=== PATIENT | female | born 1945 | race Caucasian/White ===

== ENCOUNTER 2021-11-14 15:53 | Emergency (ER) | payer MEDICARE, BC | END 2021-11-14 17:15 | disposition home or self-care (01) | LOC: DL.ED 15:53 | DX: L71.9 Rosacea, unspecified (principal); Z88.0 Allergy status to penicillin; Z88.5 Allergy status to narcotic agent | CPT/HCPCS: 99282 ==

== ENCOUNTER 2022-03-02 04:48 | Emergency (ER) | payer MEDICARE, BC ==
[2022-03-02] MEDS ORDERED: Ketorolac 30 MG/ML SDV IM ONE (18:40)
== END 2022-03-02 18:44 | disposition home or self-care (01) ==
LOC: DL.ED 04:48
DX: M25.511 Pain in right shoulder (principal); M79.601 Pain in right arm; W19.XXXA Unspecified fall, initial encounter
CPT/HCPCS: 96372; 99283

== ENCOUNTER 2022-03-24 18:09 | Emergency (ER) | payer MEDICARE, BC ==
[2022-03-24] MEDS ORDERED: Sodium Chloride 0.9% 10 ML Syringe FLUSH PRN (18:32)
[2022-03-24 19:06] LABS: ANION GAP 11.7 mEq/L (7-13); CHLORIDE,CL 97 mmol/L (98-107); SODIUM,NA 132 mmol/L (136-145)
[2022-03-24 19:10] LABS: ESTIMATED GFR 72 mL/min (>=60); PTT,PARTIAL THROMBOPLSTIN TIME 24.5 SEC (22.0-34.0)
[2022-03-24 19:54] LABS: AMPHETAMINES,URINE NEGATIVE (NEGATIVE); BARBITURATES,URINE NEGATIVE (NEGATIVE); BENZODIAZEPINE,URINE NEGATIVE (NEGATIVE); MDMA (ECSTASY), URINE NEGATIVE (NEGATIVE); METHADONE,URINE NEGATIVE (NEGATIVE); METHAMPHETAMINES,URINE NEGATIVE (NEGATIVE); OPIATES,URINE NEGATIVE (NEGATIVE); OXYCODONE,URINE NEGATIVE (NEGATIVE); PHENCYCLIDINE,URINE NEGATIVE (NEGATIVE); TCA,URINE NEGATIVE (NEGATIVE)
== END 2022-03-24 20:35 | disposition home or self-care (01) ==
LOC: DL.ED 18:09
DX: R53.1 Weakness (principal); R47.01 Aphasia; I10 Essential (primary) hypertension; Z86.16 Personal history of COVID-19; Z88.0 Allergy status to penicillin; Z88.5 Allergy status to narcotic agent; Z79.82 Long term (current) use of aspirin
CPT/HCPCS: 36415; 70450; 80053; 80305-QW; 80307; 81001; 82140; 82947; 83605; 83735; 84145; 84484; 85025; 85610; 85730; 86140; 87086; 87088; 87186; 93005; 99285